=== PATIENT | male | born 1985 | race African-American/Black ===

== ENCOUNTER 2018-09-07 03:25 | Emergency (ER) | payer OTHER ==
[~2018-09-07 03:25] MED LIST: BENADRYL25 MG PO; KEFLEX500 M1 PO; MUCINEX TA600 MG/TA2 PO; ZPAK PO
[2018-09-07 03:45] VITALS: BP 175/108
== END 2018-09-07 07:40 | disposition home or self-care (01) ==
LOC: ER 03:25
DX: Z53.21 Procedure and treatment not carried out due to patient leaving prior to being seen by health care provider (principal)